=== PATIENT | female | born 1960 | race Caucasian/White ===

== ENCOUNTER → 2024-03-10 01:19 | Outpatient (CLI) | payer BC, SELFPAY ==
--- NOTE | 2024-03-10 | DI.MAMMO_ITS ---
Exam(s) MAMMO SCREENING EXAM: MAMMO SCREENING CLINICAL HISTORY: Z12.31 Screening TECHNIQUE: Bilateral full field digital CC and MLO mammographic images were obtained with 3D tomosyn thesis and utilizing computer aided detection (CAD). COMPARISON: Available for comparison. FINDINGS: Masses/Architectural Distortion: None seen. Microcalcifications: No suspicious pleomorphic-type are seen. Skin Thickening/Nipple Retraction: None. IMPRESSION: 1. No significant interval change with no specific features of malignancy noted. 2. Unless there is more urgent need, screening mammography is recommended, as per [employer] guidelines. BI-RADS Category 1 - Negative Breast Density - Category B - Scattered areas of fibroglandular density Breast density category C or D implies that the patient has dense breast tissue. Dense breast tissue is very common and is not abnormal but dense breast tissue can make it harder to find cancer on a ma mmogram. Also, dense breast tissue may increase their breast cancer risk. This information about the result of the mammogram report was provided to the patient to raise their awareness. Use this report when you speak with the patient about their risks for breast cancer, which includes their family hist ory. At that time, you may recommend for more screening tests (Ultrasound or MRI) as they might be us eful based on their risk. A negative radiographic report should not delay biopsy if a dominant or clinically suspicious mass is present. Up to ten percent of cancers are not identified on mammography. A negative report may reinforce clinical impression. Adenosis and dense breasts may obscure an underlying neoplasm. False positive reports average 6 to 10%. Patient will receive a letter notifying them of these results.
== END ==
PROVIDERS: PCP Family Medicine; Visit Provider Family Medicine
DX: Z12.31 Encounter for screening mammogram for malignant neoplasm of breast (principal)
CPT/HCPCS: 77063; 77067

== ENCOUNTER 2024-03-27 21:38 | Emergency (ER) | payer BC, SELFPAY ==
[2024-03-27 21:40] VITALS: BP 165/95; PULSE 77; RESP 18; TEMP 36.2; O2SAT 99
--- NOTE | 2024-03-27 22:00 | DI.RAD_ITS ---
Exam(s) XR HUMERUS LT EXAM: XR HUMERUS LT CLINICAL HISTORY: trauma/fall. TECHNIQUE: 2D digital imaging was performed. COMPARISON: No exams were available for comparison FINDINGS: Two views. No evidence of humerus fracture or dislocation. Bone density normal. No osseous lesions. No radiop aque foreign bodies. Multiple ipsilateral healed left rib fractures noted. IMPRESSION: No acute osseous findings in the left humerus. DATA REPOSITORY: RADIATION DOSE DELIVERED:
--- NOTE | 2024-03-27 22:00 | ED.GENADUL_ITS ---
Discharge Plan Disposition Patient Disposition: Home Condition: Good Discharge Details Clinical Impression: Traumatic injury of left shoulder Primary Care Provider: Claribel Vergara ED Provider: Miki Carolina Home Meds and New Rx's Prescriptions: No Action No Known Home Meds Discharge Instructions Additional Instructions: You were seen in the ED for left shoulder injury. X-rays show possible mild AC separation but no obvious fracture or dislocation. Would ice on and off the rest of the weekend. Sling for the weekend and then began range of motion exercises next week if tolerable. Alternate acetaminophen 1 g with ibuprofen 400 to 600 mg every 4 hours. You may try lidocaine patches. Follow-up with primary care or if continued significant pain orthopedics as a rotator cuff injury cannot be ruled out. Return to ED for any severe worsening pain, numbness, weakness, discoloration of hand. HPI General Mode of arrival: ambulatory . Date/Time Provider Initiated Documentation: 03/27/24 22:00 . Limitations to Documentation: no limitations . Information obtained by: patient and RN notes reviewed . HPI Narrative: Patient is a right handed female presenting with left shoulder and upper arm pain after a fall while hiking. Patient actually reports falling probably 3 times today on her hike because it was so white out. She sustained some minor scratches to her face and left hand. On the third fall she pretty much landed on her left arm and has had pain in the shoulder and upper arm since then. She is unable to lift or move the arm at the shoulder without significant pain. She has no issues from the elbow down. She has no numbness or weakness. She denies striking her head or having loss of consciousness with the fall. She denies any neck or back pain. She denies any chest pain or shortness of breath. Denies any injury to her lower extremities or her right upper extremity. Related Data Home Medications ?Medication ?Instructions ?Recorded ?Confirmed Unknown [No Known Home Meds] 03/27/24 03/27/24 Allergies Allergy/AdvReac Type Severity Reaction Status Date / Time peanut Allergy Severe Anaphylaxis Verified 03/27/24 21:44 General Stated Complaint: Orthopedic CINTHYA: 4 Review of Systems Narrative: Per HPI Exam Narrative Exam Narrative: Const: Obese female in NAD. VS per triage. HEENT: NC/AT. Superficial abrasion to upper lip area. Neck: Supple. Trachea midline. No midline tenderness. Lungs: Normal respiratory effort. Lungs are clear. No chest wall tenderness. Cor: RRR. Good radial pulses. Neuro: A+O x 3. Normal speech, mentation, gait. Cranial nerves II - XII grossly intact. No gross motor or sensory deficit. Ext: No C/C/E. No deformity. No tenderness over the left clavicle. Normal sensation in the left deltoid area. Normal ROM of left elbow, wrist and no tenderness in LUE except over the proximal humerus area. NVI distal. Superficial small flap injury to back of left hand. Back: No TLS tenderness. Course Vital Signs Vital signs: Vital Signs Temperature 97.2 F L 03/27/24 21:40 Pulse 77 03/27/24 21:40 Respiratory Rate 18 03/27/24 21:40 Blood Pressure 165/95 H 03/27/24 21:40 Pulse Oximetry 99 03/27/24 21:40 Temperature 97.2 F L 03/27/24 21:40 Temperature Source Temporal Artery Scan 03/27/24 21:40 Pulse 77 03/27/24 21:40 Respiratory Rate 18 03/27/24 21:40 Respiratory Effort Normal, Non-Labored 03/27/24 21:43 Blood Pressure 165/95 H 03/27/24 21:40 Blood Pressure Position Sitting 03/27/24 21:40 Pulse Oximetry 99 03/27/24 21:40 Oxygen Delivery Method Room Air 03/27/24 21:40 Oxygen Flow Rate 0 03/27/24 21:40 Pain Level 6 03/27/24 21:46 Medical Decision Making Patient presenting with left shoulder and left upper arm pain status post fall while hiking. No other injury noted other than superficial abrasion to her upper lip and a superficial flap laceration to the back of her left hand. X- rays of left shoulder and humerus ordered. X-rays of the left shoulder and humerus with no obvious fracture or dislocation. There may be some mild AC separation. Have discussed with patient. For now we will place in sling and recommend ice and rest over the weekend. May alternate acetaminophen with ibuprofen and may also use lidocaine patches. Has had previous right shoulder problems so knows all the range of motion and strengthening shoulder exercises from before. Recommend follow-up with primary care and/or Ortho if no significant improvement especially if continues to have minimal range of motion. Return precautions discussed. Imaging Data Radiologic Study: Attestation: I personally reviewed and interpreted this imaging study as follows: Imaging: X-Ray My impression: Per [facility] All Active Problems (Updated 03/27/24 @ 22:54 by Miki Carolina MD) Traumatic injury of left shoulder (Acute) Social History Smoking/Tobacco Use Status: Never Smoking risk assessment performed?: Yes Alcohol Intake: never Drug use: Never Substance use type: does not use
--- NOTE | 2024-03-27 22:26 | DI.RAD_ITS ---
Exam(s) XR SHOULDER LT COMPLETE 2+V EXAM: XR SHOULDER LT COMPLETE 2+V CLINICAL HISTORY: trauma/fall. TECHNIQUE: 2D digital imaging was performed. COMPARISON: No exams were available for comparison FINDINGS: 3 views There is no evidence of acute fracture or dislocation of the glenohumeral joint and AC joints. Minim al degenerative changes noted. There is an osteophytic ridge on the undersurface of the a chromium i ncidentally noted. This may be causing some impingement upon the rotator cuff mechanism but these bee bacromial space does not appear diminished. The ipsilateral clavicle is intact. Bone density is age -appropriate and there are no osseous lesions. There are multiple healed left-sided rib fractures evident. IMPRESSION: No acute fracture or dislocation of the glenohumeral joint. Other findings as above. DATA REPOSITORY: RADIATION DOSE DELIVERED:
[2024-03-27 22:58] VITALS: BP 116/77; PULSE 68; RESP 16; O2SAT 97
--- NOTE | 2024-03-27 23:03 | NUR.NOTE ---
i was in the chart to document left shoulder sling being applied to patient and noticed nurse already documented it.
--- NOTE | 2024-03-27 23:39 | DI.VRAD_ITS ---
PROCEDURE INFORMATION: Exam: XR Left Humerus Exam date and time: 03/27/2024 10:19 PM Age: 63 years old Clinical indication: Injury or trauma; Fall; Blunt trauma (contusions or hematomas); Shoulder and arm, upper; Left; Injury date: 03/27/24 TECHNIQUE: Imaging protocol: Radiologic exam of the left humerus. Views: 2 or more views. COMPARISON: CR XR SHOULDER LT COMPLETE 2+V 03/27/2024 10:17 PM FINDINGS: Bones/joints: Humerus is intact. No fracture. No dislocation of shoulder or elbow. Soft tissues: Soft tissues of the left upper arm are unremarkable. IMPRESSION: 1. No fracture or dislocation. 2. Unremarkable soft tissues. Dictated and Authenticated by: Inder Myers MD. Ordering:BERTHA Livingston MD
--- NOTE | 2024-03-27 23:41 | DI.VRAD_ITS ---
PROCEDURE INFORMATION: Exam: XR Left Shoulder Exam date and time: 03/27/2024 10:17 PM Age: 63 years old Clinical indication: Injury or trauma; Fall; Blunt trauma (contusions or hematomas); Shoulder and arm, upper; Left; Injury date: 03/27/24 TECHNIQUE: Imaging protocol: Radiologic exam of the left shoulder. Views: 2 or more views. COMPARISON: No relevant prior studies available. FINDINGS: Bones/joints: No acute fracture. No dislocation. Subacromial spurring is noted. AC joint moderate to severe degenerative disease. Old posterolateral left rib fractures involving the 5th, 6, 7th, and 8th ribs. These have healed. Soft tissues: Soft tissues of the left shoulder region are unremarkable. IMPRESSION: 1. No acute fracture or dislocation. 2. Subacromial spurring. 3. AC joint degenerative disease. 4. Multiple old healed posterolateral left rib fractures. Dictated and Authenticated by: Inder Myers MD. Ordering:BERTHA Livingston MD
== END 2024-03-27 22:54 | disposition home or self-care (01) ==
PROVIDERS: Emergency Provider Emergency Medicine; PCP Family Medicine
DX: S49.92XA Unspecified injury of left shoulder and upper arm, initial encounter (principal); M79.602 Pain in left arm; M25.512 Pain in left shoulder; W19.XXXA Unspecified fall, initial encounter; Y93.01 Activity, walking, marching and hiking
CPT/HCPCS: 99284; 73030; 73060; 99283